=== PATIENT | male | born 1980 | race Caucasian/White ===

== ENCOUNTER 2018-06-10 19:14 | Emergency (ER) | payer SELFPAY ==
[~2018-06-10] VITALS: Ht 172.7 cm; Wt 79.4 kg
[2018-06-10 19:31] VITALS: Ht 172.7 cm; Wt 79.4 kg
[2018-06-10 23:47] VITALS: BP 128/74
== END 2018-06-10 23:47 | disposition home or self-care (01) ==
LOC: ED 19:14
DX: L03.116 Cellulitis of left lower limb (principal)
CPT/HCPCS: J1885; J2001

== ENCOUNTER 2018-06-13 13:02 | Emergency (ER) | payer SELFPAY ==
[~2018-06-13] VITALS: Ht 172.7 cm; Wt 84.8 kg
[2018-06-13 13:09] VITALS: Ht 172.7 cm; Wt 84.8 kg
[2018-06-13 14:01] VITALS: BP 130/78
== END 2018-06-13 14:01 | disposition home or self-care (01) ==
LOC: ED 13:02
DX: T36.1X5A Adverse effect of cephalosporins and other beta-lactam antibiotics, initial encounter (principal); L02.416 Cutaneous abscess of left lower limb; Y92.89 Other specified places as the place of occurrence of the external cause